=== PATIENT | female | born 1955 | race Caucasian/White ===

== ENCOUNTER → 2017-12-14 | Outpatient (CLI) | payer BC ==
[~2017-12-14] MED LIST: CENTRUM1 TAB PO; CRESTOR10 MG PO; ENJUVIA0.625 MG PO; PREMARIN 0.60.625 MG PO
== END ==
LOC: MC.RAD 13:30
DX: Z12.31 Encounter for screening mammogram for malignant neoplasm of breast (principal)

== ENCOUNTER → 2018-05-31 | Outpatient (CLI) | payer BC | LOC: SUN.DIA 11:55 | DX: E11.9 Type 2 diabetes mellitus without complications (principal) | CPT/HCPCS: G0109 ==

== ENCOUNTER → 2018-06-07 | Outpatient (CLI) | payer BC | LOC: SUN.DIA 09:30 | DX: E11.9 Type 2 diabetes mellitus without complications (principal) | CPT/HCPCS: G0109 ==

== ENCOUNTER → 2018-06-14 | Outpatient (CLI) | payer BC | LOC: SUN.DIA 09:30 | DX: E11.9 Type 2 diabetes mellitus without complications (principal) | CPT/HCPCS: G0109 ==

== ENCOUNTER → 2019-02-26 | Outpatient (CLI) | payer BC | LOC: COL.RAD 13:37 | DX: M50.30 Other cervical disc degeneration, unspecified cervical region (principal) ==

== ENCOUNTER → 2019-06-07 | Outpatient (CLI) | payer BC | LOC: COL.RAD 10:13 | DX: N17.8 Other acute kidney failure (principal) ==

== ENCOUNTER → 2019-07-02 | Outpatient (CLI) | payer BC | LOC: MC.RAD 14:04 | DX: Z12.31 Encounter for screening mammogram for malignant neoplasm of breast (principal) ==

== ENCOUNTER → 2020-08-18 | Outpatient (CLI) | payer BC | LOC: MC.RAD 14:35 | DX: Z12.31 Encounter for screening mammogram for malignant neoplasm of breast (principal) ==

== ENCOUNTER → 2021-03-18 | Outpatient (CLI) | payer MEDICARE | LOC: COL.RAD 07:48 | DX: M54.16 Radiculopathy, lumbar region (principal) ==

== ENCOUNTER 2021-08-26 14:42 | Outpatient (RCR) | payer MEDICARE ==
[~2021-08-26] VITALS: Ht 170.2 cm; Wt 75.0 kg
[2021-08-26 15:20] VITALS: BP 134/72; PULSE 83; TEMP 98.7
[2021-08-26] MEDS ORDERED: LIPITOR20 MG PO (15:49)
--- NOTE | 2021-08-26 16:00 | NUR ---
Pt remained in dept for 30 mins following initial dose of evenity. She denies complaints or concerns prior to departure. Pt was provided with printed packet with evenity medication information.
[2021-08-26] MEDS ORDERED: SYNTHROID0.075 MG/T PO (17:41)
[2021-08-26] MEDS ORDERED: CALCIUM 600MG+D1 TAB PO (17:42)
[2021-08-26] MEDS ORDERED: VITAMIN D31000 IU PO (17:43)
[2021-08-26] MEDS ORDERED: VITAMIN C500 MG PO (17:43)
[2021-08-26] MEDS ORDERED: PRESERVISION1 SGL PO (17:43)
[2021-08-26] MEDS ORDERED: HAIRSKINNAILS PO (17:46)
[2021-08-26] MEDS ORDERED: TEMOVATE0.05% TP (17:47)
[2021-08-26] MEDS ORDERED: PREDNISONE 5MG5 MG PO (17:47)
== END 2021-08-26 16:11 ==
LOC: EUO 14:42
DX: M81.0 Age-related osteoporosis without current pathological fracture (principal); Z79.899 Other long term (current) drug therapy
CPT/HCPCS: J3111

== ENCOUNTER 2021-09-23 14:44 | Outpatient (RCR) | payer MEDICARE ==
[~2021-09-23] VITALS: Ht 170.2 cm; Wt 78.5 kg
[~2021-09-23 14:44] MED LIST changes: +CALCIUM 600MG+D1 TAB PO; +HAIRSKINNAILS PO; +LIPITOR20 MG PO; +PREDNISONE 5MG5 MG PO; +PRESERVISION1 SGL PO; +SYNTHROID0.075 MG/T PO; +TEMOVATE0.05% TP; +VITAMIN C500 MG PO; +VITAMIN D31000 IU PO
[2021-09-23 14:58] VITALS: BP 121/77; PULSE 102; TEMP 97.6
== END 2021-10-18 | disposition home or self-care (01) ==
LOC: EUO
DX: M81.0 Age-related osteoporosis without current pathological fracture (principal)
CPT/HCPCS: J3111

== ENCOUNTER 2021-10-28 14:49 | Outpatient (RCR) | payer MEDICARE ==
[~2021-10-28] VITALS: Ht 170.2 cm; Wt 77.5 kg
[2021-10-28 15:08] VITALS: BP 131/73; PULSE 94; TEMP 98.1
== END 2021-10-28 15:27 | disposition home or self-care (01) ==
LOC: EUO 14:49
DX: M81.0 Age-related osteoporosis without current pathological fracture (principal)
CPT/HCPCS: J3111

== ENCOUNTER 2022-01-31 12:49 | Outpatient (CLI) | payer MEDICARE ==
[~2022-01-31] VITALS: Ht 170.2 cm; Wt 77.0 kg
[2022-01-31 13:07] VITALS: BP 127/83; PULSE 85; TEMP 98.2
[2022-01-31] MEDS ORDERED: JARDIANCE10 PO (13:08)
--- NOTE | 2022-01-31 13:55 | NUR ---
Pt remained in room for 30 mins following initial prolia injection. No s/s of medication reaction at this time. Pt education packet provided to pt. She is escorted out to elevator.
== END 2022-01-31 15:17 | disposition home or self-care (01) ==
LOC: EUO 12:49
DX: M81.0 Age-related osteoporosis without current pathological fracture (principal)
CPT/HCPCS: J0897

== ENCOUNTER → 2022-07-26 | Outpatient (CLI) | payer MEDICARE ==
[~2022-07-26] MED LIST changes: +JARDIANCE10 PO
== END ==
LOC: MC.RAD 10:18
DX: Z12.31 Encounter for screening mammogram for malignant neoplasm of breast (principal)

== ENCOUNTER 2022-12-11 06:08 | Inpatient (IN) | payer MEDICARE ==
[~2022-12-11] VITALS: Ht 154.9 cm; Wt 68.2 kg
[2022-12-11 06:59] LABS: BASO # 0.1 K/mm3 (0.0-0.2); BASO % 1.1 % (0.0-2.0); EOS # 0.1 K/mm3 (0.0-0.7); EOS % 1.1 % (0.0-4.0); GRAN # 7.5 K/mm3 (1.4-6.5); GRAN % 61.8 % (42.2-75.2); HEMATOCRIT 42.6 % (37.0-47.0); HEMOGLOBIN 13.8 g/dl (12.5-16.0); LYMPH # 3.2 K/mm3 (1.2-3.4); LYMPH % 26.6 % (20.0-51.0); MEAN CELL VOLUME 85 fl (80.0-100.0); MEAN CORPUSCULAR HEMOGLOBIN 27 pg (27-31); MEAN CORPUSCULAR HGB CONC 32 g/dl (33.0-37.0); MEAN PLATELET VOLUME 8.8 fl (7.4-10.4); MONO % 8.4 % (1.7-9.3); PLATELET COUNT 369 K/mm3 (130-400); RED BLOOD COUNT 5.04 M/mm3 (4.10-5.30); REDCELL DISTRIBUTION WIDTH-CV 15.4 % (11.5-14.5)
[2022-12-11] MEDS ORDERED: JARDIANCE25 PO (07:08)
[2022-12-11] MEDS ORDERED: PROLIA60 MG/ML SQ (07:09)
[2022-12-11] MEDS ORDERED: PREDNISONE1 MG PO (07:11)
[2022-12-11 07:16] LABS: ALBUMIN 3.6 gm/dL (3.4-4.8); BILIRUBIN,TOTAL 0.5 mg/dL (0.2-1.2); CALCIUM 8.9 mg/dL (8.4-10.2); CREATININE, serum 0.94 mg/dL (0.57-1.11); POTASSIUM 3.7 mmol/L (3.5-4.5); TOTAL PROTEIN 7.2 gm/dL (6.2-8.1)
[2022-12-11 09:17] VITALS: BP 129/70; PULSE 94; TEMP 97.5
--- NOTE | 2022-12-11 09:18 | NUR ---
Pt just arrived to the floor from ED. Pt is alert and oriented, spouse at bedside. Pain to her right hip. Dr Osman in visiting with pt and spouse
[2022-12-11] MEDS ORDERED: FOLIC ACID 11 MG/TA1 PO (09:29)
[2022-12-11] MEDS ORDERED: METHOTREXA2.5 MG/TAB PO (09:29)
[2022-12-11] MEDS ORDERED: MULTIVITAMIN FO1 CAP PO (09:32)
[2022-12-11 10:10] LABS: PROTHROMBIN TIME 11.5 SECONDS (9.7-12.8)
[2022-12-11 10:30] LABS: COLLECTION METHOD CLEAN CATCH
[2022-12-11 10:43] LABS: MUCOUS Present (NOT PRESENT); SQUAMOUS EPITHELIAL None Seen /hpf (0-10); URINE APPEARANCE Hazy (CLEAR/HAZY); URINE BACTERIA None Seen /hpf (NONE SEEN); URINE COLOR Yellow (YELLOW); URINE GLUCOSE 3+ (NEGATIVE); URINE KETONE Negative (NEGATIVE); URINE PROTEIN(semi-quant) Negative (NEGATIVE); URINE RBC 0-2 /hpf (0-2)
[2022-12-11 10:44] LABS: URINE BLOOD TRACE-INTACT (NEGATIVE); URINE NITRATE Positive (NEGATIVE); URINE UROBILINOGEN 0.2 E.U/dL (0.2-1.0)
[2022-12-11 12:08] VITALS: BP 127/71; PULSE 99; TEMP 98.7
--- NOTE | 2022-12-11 14:42 | NUR ---
Pt doing well, continues to report that her pain is tolerable. Discussed with her again that she has PRN pain medication that can be given at any time if she needs it. Ice pack to her right hip, no other needs, will continue to monitor
[2022-12-11 15:15] VITALS: BP 139/71; PULSE 104; TEMP 98.2
--- NOTE | 2022-12-11 18:01 | NUR ---
Pt has done well throughout the day. PRN morphine is working for her pain control. Ice pack to right hip. Pt aware that she cannot have anything to eat or drink after midnight. All questions answered, call light within reach
--- NOTE | 2022-12-11 18:17 | NUR ---
Pt ate a few bites of her dinner and it did not settle with her stomach and she vomited. Pt reports that she no longer feels nauseated and does not need zofran. Pt only requesting teetee doll at this time
[2022-12-11 20:03] VITALS: BP 133/60; PULSE 97; TEMP 100
[2022-12-11 23:56] VITALS: BP 124/64; PULSE 94; TEMP 98.5
[2022-12-12] VITALS (12 sets, daily range): BP systolic 95–127; BP diastolic 58–74; PULSE 64–101; TEMP 97.7–98.5
--- NOTE | 2022-12-12 09:42 | NUR ---
ROSELINE met with the patient to discuss discharge plan. The patient lives in [place] with her , Thanh (ph#[phone]). She reports independence with ADLs prior to the fracture and does not have any DME. The patient's PCP is Dr. García Garza and she receives her medications from [facility] and a [facility] mail order. The patient does not have a DPOA-HC, but she states that she does have one completed and that it designates her . The patient has a hip fracture. ROSELINE discussed post-acute rehab upon discharge and informed her of the local options that take her insurance: Medicare [employer]. The patient prefers 1) [facility]. 2) [facility]. SW consulted [facility]. ROSELINE contacted and faxed a referral to [facility]. *Discharge plan: post-acute rehab. Referrals out*
--- NOTE | 2022-12-12 10:06 | NUR ---
Initial visit; Patient thanked Geotechnical Intern for looking in on her before her surgical procedure, offering prayer and God's blessings and keeping her in her prayers.
--- NOTE | 2022-12-12 10:24 | NUR ---
PT TO GO TO SURGERY THIS AM. DR LANG WILL PREFORM A RIGHT HIP HEMIARTHROPLASTY. PT DENIES NEEDS AT THIS TIME. CATH CARE PROVIDED BY STAFF THIS AM. PT WILL CALL FAMILY TO INFORM THEM OF SURGERY TIME.
--- NOTE | 2022-12-12 11:31 | NUR ---
PT TO SURGERY PER BED WITH ESTELA AT THIS TIME.
--- NOTE | 2022-12-12 16:02 | NUR ---
PT TO ROOM 345 PER BED WITH REPORT FROM RYLAN HENDERSON PACU @[id number]. PT IS A/O X4 WITH LUNGS CTA. IV TO LFA PER PUMP. SCDS BILATERALLY. DRESSING TO RIGHT HIP CDI. AT BEDSIDE.
[2022-12-13 04:09] VITALS: BP 131/66; PULSE 93; TEMP 98.8
[2022-12-13 07:15] LABS: HEMATOCRIT 41.3 % (37.0-47.0)
[2022-12-13 08:11] VITALS: BP 133/72; PULSE 96; TEMP 98.9
--- NOTE | 2022-12-13 10:27 | NUR ---
Pt A&O x 4, VSS. Reports pain remains tolerable 12/26 upon reassessment after PO Ultram. IV fluids d/c at this time per VO Dr. Terry. Pt eating and drinking, no NV reported. BS x 4, reports no BM since 12/10. Sched senokot given last NOC, refuses PRN MOM. Aquacel drsg to R hip CDI, no shadowing noted. Mild swelling noted to R hip, +2 pedal pulses BLE.
[2022-12-13 11:32] VITALS: BP 124/65; PULSE 84; TEMP 98.9
[2022-12-13 15:52] VITALS: BP 133/73; PULSE 103; TEMP 99.2
--- NOTE | 2022-12-13 16:13 | NUR ---
Jyothi, JOSE ALEJANDRO Director has submitted for authorization. ROSELINE faxed clinical updates to [facility] at [facility]
[2022-12-13 19:42] VITALS: BP 129/67; PULSE 110; TEMP 97.6
[2022-12-13 23:23] VITALS: BP 126/72; PULSE 99; TEMP 97.6
[2022-12-14 04:11] VITALS: BP 122/71; PULSE 94; TEMP 98
--- NOTE | 2022-12-14 06:10 | NUR ---
PT HAD AN UNEVENTFUL NIGHT. PT WAS ABLE TO HAVE TWO BOWEL MOVEMENTS, AMBULATE TO THE BATHROOM WITH STAND BY ASSISTANCE AND A WALKER SEVERAL TIMES, HAD MINIMAL PAIN AND ONLY RECIEVED PRN PO PAIN MEDICATION X2. VITAL SIGNS REMAINED WITHIN NORMAL LIMITS. PT STATES SHE IS READY TO GET BETTER SO SHE CAN GO HOME BUT SHE KNOWS THAT IT WILL TAKE HER SOME TIME TO RECOVE FULLY. PT CURRENTLY RESTING IN BED WITH ICE ON HER RIGHT HIP.
[2022-12-14 07:01] LABS: HEMATOCRIT 40.5 % (37.0-47.0); HEMOGLOBIN 12.9 g/dl (12.5-16.0)
[2022-12-14 08:08] VITALS: BP 131/71; PULSE 92; TEMP 98.2
[2022-12-14] MEDS ORDERED: ASPIRIN 32325 MG/TA1 PO (08:44)
[2022-12-14] MEDS ORDERED: CEFTIN 250250 MG/TAB PO (08:47)
[2022-12-14] MEDS ORDERED: TYLENOL 500MG500 MG PO (08:51)
[2022-12-14] MEDS ORDERED: ULTRAM 50MG TAB50 MG PO ×2 (08:51→15:29)
--- NOTE | 2022-12-14 09:38 | NUR ---
PATIENT ALERT AND ORIENTED X4. VSS. PATIENT HERE FOR RIGHT HIP FRACTURE. PATIENT REPORTS MILD PAIN, 3/10, PAIN MEDICATION REQUESTED. AQUACELL TO RIGHT HIP, CDI. IV TO RIGHT AC INTO. PATIENT AMBULATED TO BATHROOM WITH WALKER, SBA. PATIENT IN CHAIR, ALARM ACTIVATED. CALL LIGHT NEAR.
[2022-12-14 12:29] VITALS: BP 121/63; PULSE 97; TEMP 98.2
--- NOTE | 2022-12-14 14:54 | NUR ---
Freight Flow Sales Leader was notified by JOSE ALEJANDRO Roe Director that [employer] denied auth. SW submitted for auth for SNF with [facility]. ROSELINE also contacted [facility] at [facility] and faxed clinical updates. Discharge Plan: [facility] SNF pending auth
[2022-12-14 16:30] VITALS: BP 107/54; PULSE 89; TEMP 98.2
[2022-12-14 19:36] VITALS: BP 115/64; PULSE 99; TEMP 98
--- NOTE | 2022-12-14 21:45 | NUR ---
pt a&ox4 resting in bed watching tv. meds given and assessment complete. pt denies pain. fall precautions in place. aqaucell to right hip is cdi. teds and scds to ble. BGL of 158 requiring 4 unites of insulin. INT to right ac. pt denies needs at this time. call light within reach.
[2022-12-14 23:46] VITALS: BP 114/66; PULSE 89; TEMP 97.7
[2022-12-15 04:55] VITALS: BP 108/69; PULSE 82; TEMP 98.3
[2022-12-15 07:51] VITALS: BP 120/68; PULSE 91; TEMP 98.6
--- NOTE | 2022-12-15 10:00 | NUR ---
Pt doing well this morning. She is aware that the plans will be for her to go to [facility] today. Pt reports that her pain is tolerable. Pt is dressed. Informed her we would assist with packing up the rest of her belongings. Incision LAURA
[2022-12-15 12:04] VITALS: BP 118/57; PULSE 92; TEMP 97.6
[2022-12-15 12:36] VITALS: BP 118/57; PULSE 92; TEMP 97.6
--- NOTE | 2022-12-15 14:12 | NUR ---
Pt has left for [facility], Report called to [facility]
--- NOTE | 2022-12-15 15:39 | NUR ---
Policy Service Coordinator received authorization from [facility] for [facility]. ROSELINE provided auth information to Km at [facility]. Ref#[id number], auth#[id number]. [facility]m advised they can accept today. ROSELINE met with patient who is disappointed [facility] was denied, but is agreeable to [facility] SNF. ROSELINE faxed discharge orders to [facility] at [facility] and transport time was set for 1300. Discharge Plan: [facility]
== END 2022-12-15 14:00 | DRG 522 ==
LOC: COL.ER 06:08 → SURG 07:56
PROVIDERS: Emergency Medicine; Orthopaedic Surgery; ADMIT Internal Medicine
PROC: 0SRR0J9 Replacement of Right Hip Joint, Femoral Surface with Synthetic Substitute, Cemented, Open Approach (ICD-10-PCS; principal; 2022-12-12 12:30)
DX: S72.001A Fracture of unspecified part of neck of right femur, initial encounter for closed fracture (principal); N39.0 Urinary tract infection, site not specified; B96.20 Unspecified Escherichia coli [E. coli] as the cause of diseases classified elsewhere; M35.3 Polymyalgia rheumatica; I10 Essential (primary) hypertension; E11.9 Type 2 diabetes mellitus without complications; L40.0 Psoriasis vulgaris; E03.9 Hypothyroidism, unspecified; E78.00 Pure hypercholesterolemia, unspecified; R91.8 Other nonspecific abnormal finding of lung field; W18.39XA Other fall on same level, initial encounter; Z79.52 Long term (current) use of systemic steroids; Y93.89 Activity, other specified; Y92.89 Other specified places as the place of occurrence of the external cause; Z90.710 Acquired absence of both cervix and uterus; Z88.5 Allergy status to narcotic agent; Z88.8 Allergy status to other drugs, medicaments and biological substances; Z79.890 Hormone replacement therapy; Z88.6 Allergy status to analgesic agent; Z23 Encounter for immunization
CPT/HCPCS: A4314; A9284; C1713; C1776; J0690; J0696; J1170; J1720; J1815; J2250; J2270; J2405; J2550; J2704; J2795; J3010; J7120; J7512

== ENCOUNTER 2023-08-15 14:47 | Outpatient (CLI) | payer MEDICARE ==
[~2023-08-15] VITALS: Ht 154.9 cm; Wt 74.2 kg
[~2023-08-15 14:47] MED LIST changes: +ASPIRIN 32325 MG/TA1 PO; +CEFTIN 250250 MG/TAB PO; +FOLIC ACID 11 MG/TA1 PO; +JARDIANCE25 PO; +METHOTREXA2.5 MG/TAB PO; +MULTIVITAMIN FO1 CAP PO; +PREDNISONE1 MG PO; +PROLIA60 MG/ML SQ; +TYLENOL 500MG500 MG PO; +ULTRAM 50MG TAB50 MG PO
[2023-08-15 14:55] VITALS: BP 119/74; PULSE 70; TEMP 97.7
[2023-08-15] MEDS ORDERED: TREXALL10 MG PO (15:08)
[2023-08-15] MEDS ORDERED: PREDNISONE 5MG5 MG PO (15:08)
--- NOTE | 2023-08-15 15:08 | NUR ---
PT TOLERATED PROLIA INJECTION WELL. VS REMAINED WITHIN NORMAL LIMITMS AND SHE [facility]UL[facility]. PT REMAINED FREE FROM ACUTE CONCERNS AND COMPLAINTS AT TIME OF DISCHARGE.
== END 2023-08-15 15:10 | disposition home or self-care (01) ==
LOC: EUO 14:47
DX: M81.0 Age-related osteoporosis without current pathological fracture (principal)
CPT/HCPCS: J0897

== ENCOUNTER → 2023-08-16 | Outpatient (CLI) | payer MEDICARE ==
[~2023-08-16] MED LIST changes: +TREXALL10 MG PO
== END ==
LOC: CANSCHCLI → MC.RAD 10:58
DX: Z12.31 Encounter for screening mammogram for malignant neoplasm of breast (principal)

== ENCOUNTER 2023-09-29 10:51 | Inpatient (IN) | payer MEDICARE ==
[~2023-09-29] VITALS: Ht 167.6 cm; Wt 70.6 kg
[~2023-09-29 10:51] MED LIST changes: -TREXALL10 MG PO
[2023-09-29 12:15] LABS: HEMATOCRIT 47.6 % (37.0-47.0); HEMOGLOBIN 15.5 g/dl (12.5-16.0); MEAN CELL VOLUME 88 fl (80.0-100.0); MEAN CORPUSCULAR HEMOGLOBIN 29 pg (27-31); MEAN CORPUSCULAR HGB CONC 33 g/dl (33.0-37.0); MEAN PLATELET VOLUME 10.1 fl (7.4-10.4); PLATELET COUNT 310 K/mm3 (130-400); RED BLOOD COUNT 5.43 M/mm3 (4.10-5.30); REDCELL DISTRIBUTION WIDTH-CV 15.1 % (11.5-14.5)
[2023-09-29 12:18] LABS: ALBUMIN 4.3 gm/dL (3.4-4.8); BILIRUBIN,TOTAL 0.6 mg/dL (0.2-1.2); CALCIUM 10.2 mg/dL (8.4-10.2); CREATININE, serum 0.84 mg/dL (0.57-1.11); POTASSIUM 4.2 mmol/L (3.5-4.5); TOTAL PROTEIN 8.4 gm/dL (6.2-8.1)
[2023-09-29 12:42] LABS: BAND 8 % (0-10); BASOPHIL 1 % (0-2); EOSINOPHIL 1 % (0-4); LYMPHOCYTE 9 % (20.0-51.0); NEUTROPHILS 72 % (42.0-75.2); PLATELET ESTIMATE NORMAL (NORMAL)
[2023-09-29 13:00] VITALS: BP_SYST 106
[2023-09-29 13:39] LABS: COLLECTION METHOD CLEAN CATCH
[2023-09-29 13:55] LABS: URINE APPEARANCE Clear (CLEAR/HAZY); URINE COLOR Yellow (YELLOW); URINE GLUCOSE 3+ (NEGATIVE); URINE KETONE TRACE (NEGATIVE); URINE PROTEIN(semi-quant) Negative (NEGATIVE); URINE UROBILINOGEN 0.2 E.U/dL (0.2-1.0)
[2023-09-29 13:56] LABS: URINE BLOOD TRACE-INTACT (NEGATIVE); URINE NITRATE Positive (NEGATIVE); URINE RBC 0-2 /hpf (0-2)
[2023-09-29 13:57] LABS: SQUAMOUS EPITHELIAL 0-2 /hpf (0-10); URINE BACTERIA Moderate /hpf (NONE SEEN)
[2023-09-29] MEDS ORDERED: FOLIC ACID 11 MG/TA1 PO (14:16)
[2023-09-29 15:03] VITALS: BP_SYST 106
[2023-09-29 15:59] VITALS: BP 108/72; PULSE 119; TEMP 98.2
--- NOTE | 2023-09-29 16:11 | NUR ---
PT A/O X4, PAIN 6/10 IN ABDOMEN AND BACK, VITALS STABLE BUT TACHY IN THE 120'S RESTING, STEADY GAIT, NO SKIN ISSUES, FAMILY AT BEDSIDE, WILL CONTINUE TO MONITOR.
[2023-09-29 19:54] VITALS: BP 109/69; PULSE 115; TEMP 98.1
[2023-09-29 21:00] VITALS: BP_SYST 115
[2023-09-29 23:26] VITALS: BP 115/72; PULSE 116; TEMP 98.5
[2023-09-30] VITALS (12 sets, daily range): BP systolic 108–130; BP diastolic 64–81; PULSE 112–138; TEMP 98–98.9
[2023-09-30 07:17] LABS: BASO # 0.1 K/mm3 (0.0-0.2); BASO % 0.6 % (0.0-2.0); EOS % 0.2 % (0.0-4.0); GRAN # 18.8 K/mm3 (1.4-6.5); GRAN % 89.8 % (42.2-75.2); HEMATOCRIT 43.2 % (37.0-47.0); LYMPH % 4.8 % (20.0-51.0); MEAN CELL VOLUME 88 fl (80.0-100.0); MEAN CORPUSCULAR HEMOGLOBIN 28 pg (27-31); MEAN CORPUSCULAR HGB CONC 32 g/dl (33.0-37.0); MEAN PLATELET VOLUME 9.2 fl (7.4-10.4); MONO # 0.8 K/mm3 (0.1-0.6); MONO % 3.9 % (1.7-9.3); PLATELET COUNT 339 K/mm3 (130-400); RED BLOOD COUNT 4.93 M/mm3 (4.10-5.30); REDCELL DISTRIBUTION WIDTH-CV 15.4 % (11.5-14.5)
[2023-09-30 07:40] LABS: ALBUMIN 3.1 gm/dL (3.4-4.8); CALCIUM 8.7 mg/dL (8.4-10.2); CREATININE, serum 0.89 mg/dL (0.57-1.11); MAGNESIUM 1.7 mg/dL (1.6-2.6); PHOSPHOROUS 3.4 mg/dL (2.3-4.7); POTASSIUM 3.8 mmol/L (3.5-4.5)
--- NOTE | 2023-09-30 09:30 | NUR ---
PATIENT ALERT AND ORIENTED X4. VSS. PATIENT HERE FOR DIVERTICULITIS. PATIENT DENIES ANY N/V, PATIENT HAVING PAIN IN ABDOMEN RATING 5/10, REQUESTS PAIN MEDICATION. IV TO RIGHT HAND WITH NS AT 75ML/HOUR WITH POTASSIUM INFUSING WELL. PATIENT ON RA. PATIENT UP TO CHAIR, TOLERATING A SMALL AMOUNT OF ICE CHIPS THIS MORNING. NO FURTHER NEEDS. CALL LIGHT IN REACH.
--- NOTE | 2023-09-30 16:55 | NUR ---
Operations Representative met with patient to discuss discharge planning. Patient lives in [place] with her spouse, Thanh who is at bedside. Patient sees Dr. Vargas at [facility] for primary care and obtains medications from either [facility] or by mail. Patient is independent with ADLS and drives herself to medical appointments. Patient does not use any DME. Patient reported Thanh as her DPOA-HC. Discharge Plan: Home
[2023-10-01] VITALS (12 sets, daily range): BP systolic 109–133; BP diastolic 68–80; PULSE 94–113; TEMP 97.6–98.5
--- NOTE | 2023-10-01 08:00 | NUR ---
PATIENT NOW AWAKE AND GETTING UP FOR THE DAY. A&O. NO COMPLAINTS. NPO WITH ICE CHIPS. PATIENT REQUESTING MORE ICE CHIPS, GIVEN. IV FLUIDS INFUSING VIA PUMP INTO RIGHT HAND IV. DEMETRA IS ROUND, SOFT AND WITH HYPOACTIVE BOWL SOUNDS. NOTED TACHYCARDIA OF 106-116 ON TELE. ALL OTHER VSS. HEAD TO TOE ASSESSMENT COMPLETE. PATIENT INDEPENDENT IN ROOM. CALL LIGHT IN REACH.
--- NOTE | 2023-10-01 09:15 | NUR ---
PATIENT CALLED OUT C/O A METALIC TASTE IN HER MOUTH AND FEELS NAUSEATED. PATIENT HAS ONLY HAD ICE CHIPS THIS AM. GAVE PRN IV ZOFRAN. EMESIS BASIN AT BEDSIDE. COOL CLOTH TO HEAD. WILL MONITOR.
--- NOTE | 2023-10-01 09:35 | NUR ---
AM LABS STILL PENDING DUE TO ONLY 1 COLLECTIONS REP FOR THE 3RD FLOOR. AWAITING RESULTS.
--- NOTE | 2023-10-01 10:00 | NUR ---
PATIENT C/O PARKS AND ABD DISCOMFORT, REQUESTING SOMETHING FOR PAIN. PATIENT NPO, GAVE PRN IV DILAUDID.
[2023-10-01 10:25] LABS: ALBUMIN 3.2 gm/dL (3.4-4.8); CALCIUM 8.1 mg/dL (8.4-10.2); CREATININE, serum 0.75 mg/dL (0.57-1.11); MAGNESIUM 2.1 mg/dL (1.6-2.6); PHOSPHOROUS 1.7 mg/dL (2.3-4.7)
[2023-10-01 10:26] LABS: BASO # 0.1 K/mm3 (0.0-0.2); BASO % 0.6 % (0.0-2.0); EOS # 0.1 K/mm3 (0.0-0.7); EOS % 0.3 % (0.0-4.0); GRAN # 19.9 K/mm3 (1.4-6.5); GRAN % 87.2 % (42.2-75.2); HEMATOCRIT 37.2 % (37.0-47.0); LYMPH # 1.3 K/mm3 (1.2-3.4); LYMPH % 5.9 % (20.0-51.0); MEAN CELL VOLUME 91 fl (80.0-100.0); MEAN CORPUSCULAR HEMOGLOBIN 28 pg (27-31); MEAN CORPUSCULAR HGB CONC 31 g/dl (33.0-37.0); MEAN PLATELET VOLUME 10.4 fl (7.4-10.4); MONO # 1.2 K/mm3 (0.1-0.6); MONO % 5.1 % (1.7-9.3); PLATELET COUNT 333 K/mm3 (130-400); RED BLOOD COUNT 4.08 M/mm3 (4.10-5.30); REDCELL DISTRIBUTION WIDTH-CV 15.7 % (11.5-14.5)
[2023-10-01 10:28] LABS: HEMOGLOBIN 11.5 g/dl (12.5-16.0)
--- NOTE | 2023-10-01 14:30 | NUR ---
AT BEDSIDE. PATIENT NOT FEELING WELL TODAY. SEE NEW ORDERS.
[2023-10-02] VITALS (12 sets, daily range): BP systolic 112–145; BP diastolic 75–81; PULSE 79–107; TEMP 97.6–98.1
[2023-10-02 07:19] LABS: BASO # 0.1 K/mm3 (0.0-0.2); BASO % 0.7 % (0.0-2.0); EOS # 0.2 K/mm3 (0.0-0.7); EOS % 1.7 % (0.0-4.0); GRAN # 11.2 K/mm3 (1.4-6.5); GRAN % 79.3 % (42.2-75.2); HEMATOCRIT 39.6 % (37.0-47.0); HEMOGLOBIN 12.7 g/dl (12.5-16.0); LYMPH # 1.6 K/mm3 (1.2-3.4); LYMPH % 11.2 % (20.0-51.0); MEAN CELL VOLUME 89 fl (80.0-100.0); MEAN CORPUSCULAR HEMOGLOBIN 29 pg (27-31); MEAN CORPUSCULAR HGB CONC 32 g/dl (33.0-37.0); MEAN PLATELET VOLUME 9.4 fl (7.4-10.4); MONO # 0.9 K/mm3 (0.1-0.6); MONO % 6.3 % (1.7-9.3); PLATELET COUNT 287 K/mm3 (130-400); RED BLOOD COUNT 4.43 M/mm3 (4.10-5.30); REDCELL DISTRIBUTION WIDTH-CV 15.4 % (11.5-14.5)
[2023-10-02 07:45] LABS: ALBUMIN 2.8 gm/dL (3.4-4.8); ANION GAP 11 mmol/L (7-16); BLOOD UREA NITROGEN 14 mg/dL (10-20); CALCIUM 8.6 mg/dL (8.4-10.2); CARBON DIOXIDE 17 mmol/L (23-31); CHLORIDE 116 mmol/L (98-107); CREATININE, serum 0.75 mg/dL (0.57-1.11); GLUCOSE 101 mg/dL (70-99); MAGNESIUM 2.2 mg/dL (1.6-2.6); POTASSIUM 3.5 mmol/L (3.5-4.5); SODIUM 144 mmol/L (136-145)
[2023-10-02 07:51] LABS: PHOSPHOROUS < 0.7 mg/dL (2.3-4.7)
--- NOTE | 2023-10-02 08:44 | NUR ---
PT WITH STEADY GAIT TO BATHROOM STATING BM OF REGULAR SIZE THIS MORNING. NO PAIN OR N/V. A/O X4, NO SKIN ISSUES NOTED. WILL CONTINUE TO MONITOR.
--- NOTE | 2023-10-02 20:00 | NUR ---
PT A&O X4 LAYING IN BED. DENYING PAIN. C/O NAUSEA, GIVEN PRN ZOFRAN PER PT REQUEST. PICC TO RIGHT UPPER ARM INFUSING D5NS @ 75MLS. CALL LIGHT IN REACH & PT DENYING FURTHER NEEDS.
--- NOTE | 2023-10-02 23:15 | NUR ---
PT STATES NAUSEA IS NOT ANY BETTER AFTER ZOFRAN, GIVEN PRN PHENERGAN. PT REPORTS SEVERAL LOOSE BM THIS EVENING. CALL LIGHT IN REACH
[2023-10-03] VITALS (11 sets, daily range): BP systolic 113–135; BP diastolic 67–79; PULSE 68–79; TEMP 97.5–98.3
--- NOTE | 2023-10-03 05:59 | NUR ---
Pt resting in bed with even & unlabored resp. Denying pain or nausea this morning. Call light in reach & denying further needs.
[2023-10-03 07:51] LABS: BASO # 0.1 K/mm3 (0.0-0.2); BASO % 0.8 % (0.0-2.0); EOS # 0.2 K/mm3 (0.0-0.7); EOS % 1.8 % (0.0-4.0); GRAN # 8.9 K/mm3 (1.4-6.5); LYMPH # 1.6 K/mm3 (1.2-3.4); LYMPH % 13.4 % (20.0-51.0); MEAN CELL VOLUME 87 fl (80.0-100.0); MEAN CORPUSCULAR HEMOGLOBIN 29 pg (27-31); MEAN CORPUSCULAR HGB CONC 33 g/dl (33.0-37.0); MEAN PLATELET VOLUME 9.2 fl (7.4-10.4); MONO # 1.1 K/mm3 (0.1-0.6); PLATELET COUNT 270 K/mm3 (130-400); RED BLOOD COUNT 4.18 M/mm3 (4.10-5.30); REDCELL DISTRIBUTION WIDTH-CV 15.5 % (11.5-14.5)
[2023-10-03 07:52] LABS: HEMATOCRIT 36.3 % (37.0-47.0)
--- NOTE | 2023-10-03 08:05 | NUR ---
PT RESTING IN BED WITH NO PAIN AT THIS TIME BUT NOTES DISCOMFORT IN ABDOMEN. STEADY GAIT AROUND ROOM, A/O X4, NO SKIN ISSUES, PT TOLERATING ICE CHIPS. WILL CONTINUE TO MONITOR.
[2023-10-03 08:08] LABS: ALBUMIN 2.5 gm/dL (3.4-4.8); CALCIUM 7.6 mg/dL (8.4-10.2); CREATININE, serum 0.66 mg/dL (0.57-1.11); MAGNESIUM 1.9 mg/dL (1.6-2.6); PHOSPHOROUS 0.9 mg/dL (2.3-4.7); POTASSIUM 3.1 mmol/L (3.5-4.5)
[2023-10-03 10:19] LABS: CHOLESTEROL 133 mg/dL (0-199); TRIGLYCERIDE 135 mg/dL (0-149)
--- NOTE | 2023-10-03 19:19 | NUR ---
report received from evy troncoso. pt resting in bed on the phone with family. tpn and potassium running to [facility] without issue. pt denies pain. call light in reach. all needs met at this time.
--- NOTE | 2023-10-03 22:02 | NUR ---
shift assessment complete, see documentation. pt denies pain. tpn running without issue. pt reports less distension and abd pain since beginning tpn. pt now resting and watching tv. call light in reach. all needs met at this time.
[2023-10-04] VITALS (13 sets, daily range): BP systolic 111–129; BP diastolic 68–79; PULSE 65–81; TEMP 97.9–98.1
--- NOTE | 2023-10-04 06:08 | NUR ---
pt tolerated tpn well through the night. pt reports she is feeling much better this morning. call light in reach. all needs met at this time.
[2023-10-04 06:42] LABS: HEMOGLOBIN 11.4 g/dl (12.5-16.0); MEAN CELL VOLUME 89 fl (80.0-100.0); MEAN CORPUSCULAR HEMOGLOBIN 28 pg (27-31); MEAN CORPUSCULAR HGB CONC 32 g/dl (33.0-37.0); PLATELET COUNT 274 K/mm3 (130-400); RED BLOOD COUNT 4.07 M/mm3 (4.10-5.30); REDCELL DISTRIBUTION WIDTH-CV 15.4 % (11.5-14.5)
[2023-10-04 06:44] LABS: HEMATOCRIT 36.1 % (37.0-47.0)
[2023-10-04 06:57] LABS: CHOLESTEROL 136 mg/dL (0-199); TRIGLYCERIDE 217 mg/dL (0-149)
[2023-10-04 07:00] LABS: ALBUMIN 2.5 gm/dL (3.4-4.8); CALCIUM 7.6 mg/dL (8.4-10.2); CREATININE, serum 0.68 mg/dL (0.57-1.11); MAGNESIUM 1.9 mg/dL (1.6-2.6); PHOSPHOROUS 1.3 mg/dL (2.3-4.7); POTASSIUM 3.2 mmol/L (3.5-4.5)
[2023-10-04 07:08] LABS: ANISOCYTOSIS 1+; BAND 2 % (0-10); EOSINOPHIL 2 % (0-4); HYPOCHROMIA 2+; LYMPHOCYTE 16 % (20.0-51.0); NEUTROPHILS 73 % (42.0-75.2); PLATELET ESTIMATE NORMAL (NORMAL)
--- NOTE | 2023-10-04 12:44 | NUR ---
Cotton Classer Aide attended clinical rounds with the team. Patient is not ready for discharge at this time. Patient is on IV antibiotics and TPN.
--- NOTE | 2023-10-04 19:19 | NUR ---
report received from marisa troncoso. pt sitting in recliner watching tv. tpn running to [facility] without issue. pt denies pain. call light in reach. all needs met at this time.
--- NOTE | 2023-10-04 20:34 | NUR ---
shift assessment complete, see documentation. pt tolerated hs meds well. pt continues to tolerate tpn without issue. pt relaxing and reading a book in recliner. call light in reach. all needs met at this time.
[2023-10-05] VITALS (11 sets, daily range): BP systolic 111–121; BP diastolic 73–78; PULSE 75–84; TEMP 97.5–98.3
--- NOTE | 2023-10-05 05:32 | NUR ---
pt sleeping well through the night. equal and unlabored breaths noted. call light in reach. all needs met at this time.
--- NOTE | 2023-10-05 06:17 | NUR ---
not able to get blood return on either lumen. both lumens flush properly without issue or pain. updated monkey breeder dr molina. no new orders at this time.
[2023-10-05 07:34] LABS: HEMATOCRIT 39.7 % (37.0-47.0); HEMOGLOBIN 12.8 g/dl (12.5-16.0); MEAN CELL VOLUME 87 fl (80.0-100.0); MEAN CORPUSCULAR HEMOGLOBIN 28 pg (27-31); MEAN CORPUSCULAR HGB CONC 32 g/dl (33.0-37.0); MEAN PLATELET VOLUME 9.2 fl (7.4-10.4); PLATELET COUNT 310 K/mm3 (130-400); RED BLOOD COUNT 4.54 M/mm3 (4.10-5.30); REDCELL DISTRIBUTION WIDTH-CV 15.5 % (11.5-14.5)
[2023-10-05 07:54] LABS: CALCIUM 7.9 mg/dL (8.4-10.2); CREATININE, serum 0.69 mg/dL (0.57-1.11); PHOSPHOROUS 1.9 mg/dL (2.3-4.7); POTASSIUM 3.1 mmol/L (3.5-4.5)
[2023-10-05 08:50] LABS: ANISOCYTOSIS 1+; BAND 2 % (0-10); EOSINOPHIL 2 % (0-4); LYMPHOCYTE 13 % (20.0-51.0); METAMYELOCYTE 2 % (0-0); NEUTROPHILS 74 % (42.0-75.2); OVALOCYTES 1+; PLATELET ESTIMATE NORMAL (NORMAL)
--- NOTE | 2023-10-05 08:54 | NUR ---
RECIEVED REPORT FROM CRANKSHAFT GRINDER RNALLISON .
--- NOTE | 2023-10-05 10:05 | NUR ---
Business Machine Mechanic met with patient to check in and review discharge plan. Patient advised she has no questions or concerns for SW at this time. Patient is hopeful they can start her on a diet soon so she can get home. Discharge Plan: Home
--- NOTE | 2023-10-05 12:05 | NUR ---
PT ALERT AND ORIENTED, VSS. RESTING IN BED COMFORTABLY, TPN RUNNING IN RIGHT UPPER ARM PICC, CDI. SHIFT ASSESSMENT COMPLETE, MEDICATED PER EMAR. DENIES PAIN AT THIS TIME. VERY PLEASANT AND AGREEABLE TO PLAN OF CARE. IN REPORT THIS AM WAS TOLD THAT NIETHER PORT ON HER PICC ARE ABLE TO GET BLOOD RETURN BUT FLUSH WELL. SAME FOR ME WHEN I ACCESSED I WAS ABLE TO FLUSH BUT WAS NOT SUCCESSFUL GETTING BLOOD RETURN. PT IS INDEPENDENT IN THE ROOM AND HAS BEEN ADVANCED TO CLEAR LIQUID DIET, TOLERATING WELL. DENIES FURTHER NEED AT THIS TIME. CALL LIGHT WITHIN REACH.
--- NOTE | 2023-10-05 20:45 | NUR ---
PT UP IN RECLINER AT BEDSIDE. TOLERATING CLEAR LIQUIDS WITHOUT PROBLEM. HAS TPN TO CHARLENE PICC, CONNECTED ZOSYN TO PURPLE LUMEN AT THIS TIME, FLUSHES AND HAS GOOD BLOOD RETURN. PT IS ALERT AND ORIENTED X4. INDEPENDENT IN ROOM. REPORTS FLATUS. REMAINS SR ON TELEMETRY. HAS DEPENDENT EDEMA TO BLL.
[2023-10-06] VITALS (8 sets, daily range): BP systolic 116–127; BP diastolic 73–78; PULSE 71–85; TEMP 97.7–98
--- NOTE | 2023-10-06 00:15 | NUR ---
PTS BLOOD SUGAR 70, JUICE GIVEN. ON BIPAP.
--- NOTE | 2023-10-06 00:25 | NUR ---
ZOSYN COMPLETE. LUMEN FLUSHED WITH GOOD BLOOD RETURN.
[2023-10-06 07:58] LABS: CALCIUM 7.9 mg/dL (8.4-10.2); CREATININE, serum 0.69 mg/dL (0.57-1.11); MAGNESIUM 1.9 mg/dL (1.6-2.6); PHOSPHOROUS 1.7 mg/dL (2.3-4.7); POTASSIUM 3.7 mmol/L (3.5-4.5)
--- NOTE | 2023-10-06 08:47 | NUR ---
PT RESTING IN BED WITH NO PAIN AT THIS TIME. STEADY GAIT AROUND ROOM, A/O X4, NO N/V, BOWEL MOVEMENT THIS AM, DEIT ADVANCED TO GENERAL FOR BREAKFAST. WILL CONTINUE TO MONITOR.
[2023-10-06] MEDS ORDERED: AMOXICILLIN 8751 TAB PO (11:21)
[2023-10-06] MEDS ORDERED: DIFLUCAN150 MG PO (11:21)
--- NOTE | 2023-10-06 13:16 | NUR ---
DISCHARGE PROVIDED TO PT AND FAMILY. DISCUSSED FOLLOW UP APPOINTMENTS, NEW MEDICATIONS, AND WHEN TO COME BACK TO THE ER. NO QUESTIONS AT THIS TIME. PICC REMOVED BY AIVS TEAM. PT AND BELONGINGS ESCORTED OUT OF BUILDING.
== END 2023-10-06 13:09 | disposition home or self-care (01) | DRG 872 ==
LOC: COL.ER 10:51 → SURG 13:52
PROVIDERS: Physician Assistant; Surgery; ADMIT Internal Medicine
PROC: 02HV33Z Insertion of Infusion Device into Superior Vena Cava, Percutaneous Approach (ICD-10-PCS; principal; 2023-10-03)
DX: A41.9 Sepsis, unspecified organism (principal); K57.20 Diverticulitis of large intestine with perforation and abscess without bleeding; D84.9 Immunodeficiency, unspecified; E83.39 Other disorders of phosphorus metabolism; E87.6 Hypokalemia; E03.9 Hypothyroidism, unspecified; E11.9 Type 2 diabetes mellitus without complications; M06.9 Rheumatoid arthritis, unspecified; M35.3 Polymyalgia rheumatica; Z96.641 Presence of right artificial hip joint; M81.0 Age-related osteoporosis without current pathological fracture; Z79.890 Hormone replacement therapy; Z23 Encounter for immunization; Z90.710 Acquired absence of both cervix and uterus; Z79.899 Other long term (current) drug therapy; Z88.6 Allergy status to analgesic agent; Z88.5 Allergy status to narcotic agent; Z88.8 Allergy status to other drugs, medicaments and biological substances; Z86.16 Personal history of COVID-19
CPT/HCPCS: C1751; C9113; J0500; J1170; J1450; J2270; J2405; J2543; J2550; J3411; J3480; J7030; J7040; J7042; J7050; J7512; Q3014; Q9967